=== PATIENT | female | born 1975 | race Two or more races ===

== ENCOUNTER → 2021-03-23 10:18 | Outpatient (CLI) | payer OTHER | END | disposition home or self-care (01) | LOC: PPH VACUNA 10:18 | DX: Z23 Encounter for immunization (principal) ==

== ENCOUNTER → 2021-04-13 14:15 | Outpatient (CLI) | payer OTHER | END | disposition home or self-care (01) | LOC: PPH VACUNA 14:15 | DX: Z23 Encounter for immunization (principal) ==